=== PATIENT | female | born 1955 | race Caucasian/White ===

== ENCOUNTER 2018-11-29 13:23 | Emergency (ER) | payer OTHER ==
[~2018-11-29] VITALS: Ht 152.4 cm; Wt 63.5 kg
[2018-11-29] MEDS ORDERED: IV NORMAL SALINE 1000ML BAG 1,000 ML IV ONE (14:00)
[2018-11-29] MEDS ORDERED: LIDOCAINE 1%/EPI 1:100,000 20 ML VIAL. INJ ONE (15:00)
--- NOTE | 2018-11-29 15:22 | PHYS DOC ---
Past Medical History Past Medical History: No Pertinent History Alcohol Use: None Drug Use: None Adult General Chief Complaint Chief Complaint: LACERATION/AVULSION [facility] HPI Patient is a 63-year-old female who presents with laceration to her left wrist. Patient states that she was using electrostatic painter tool the strip pain off the wall when it accidentally cut into her left wrist. Patient reports pulsatile flow of blood. She states that she immediately returned again over the wound and came to the emergency room. Nursing staff reports that patient did have pulsatile flow when wound was exposed. Direct pressure immediately placed over wound. Patient reports pain is mild at this time.[] Review of Systems Review of Systems Constitutional: Denies fever or chills [] Respiratory: Denies cough or shortness of breath [] Cardiovascular: No additional information not addressed in HPI [] Integument: Positive laceration left wrist[] Neurologic: Denies headache, focal weakness or sensory changes [] Current Medications Current Medications Current Medications Medications (Trade) Dose Ordered Sig/Raffy Start Time Stop Time Status Last Admin Dose Admin Lidocaine/ Epinephrine (LIDOCAINE 1%-EPI 1:100,000 Multi-Dose) 5 ml 1X ONCE 11/29/18 15:00 11/29/18 15:01 UNV Sodium Chloride 1,000 ml @ 1,000 mls/hr 1X ONCE 11/29/18 14:00 11/29/18 14:59 UNV 11/29/18 14:28 1,000 MLS/HR Physical Exam Physical Exam Constitutional: Well developed, well nourished, no acute distress, non-toxic halima earance. [] Cardiovascular:Heart rate regular rhythm, no murmur [] Lungs & Thorax: Bilateral breath sounds clear to auscultation [] Skin: There is a 1 similar laceration to the volar aspect of the wrist overlying radial aspect. Laceration is linear. Patient is neurovascularly intact distal to wound. [] Current Patient Data Vital Signs Vital Signs Date Time Temp Pulse Resp B/P (MAP) Pulse Ox O2 Delivery O2 Flow Rate FiO2 11/29/18 13:33 97.9 18 73/55 (61) Room Air 97.9 EKG EKG [] Radiology/Procedures Radiology/Procedures [] Course & Med Decision Making Course & Med Decision Making Pertinent Labs and Imaging studies reviewed. (See chart for details) Patient moved to room upon arrival was evaluated by your medical staff after which a pressure dressing was applied to wound. Patient maintained and pressure dressing for approximately 30 minutes. Wound was reevaluated and no active bleeding noted. Laceration Repair by me: Anesthesia: 1% lidocaine with epinephrine locally Location: Volar aspect of left wrist Tendon/Joint/Nerves: No injury Foreign body: None detected after copious irrigation and exploration Technique: A total of 2 Simple Interrupted Sutures were placed utilizing 5-0 Ethilon suture material. Complexity: No subcutaneous sutures/mucosal repair/edge excision Post Closure Length: 1 cm Patient's bleeding was easily controlled in the department and there is no indication of anemia. No evidence of compartment syndrome, neurologic injury, vascular injury, open joint, tendon laceration, or foreign body. Patient is appropriate for outpatient follow up. 48 hour wound check. Scar minimization instructions given. Given location of laceration and initial pulsatile flow, patient was placed in a wrist splint for immobilization of wrist to decrease likelihood of rebleeding. Patient reevaluated post splint placement and is neurovascularly intact. Dragon Disclaimer Dragon Disclaimer This electronic medical record was generated, in whole or in part, using a voice recognition dictation system. Departure Departure Impression: Primary Impression: Laceration of left wrist Disposition: HOME, SELF-CARE Condition: STABLE Referrals: NARINDER CALDERON MD (PCP) Patient Instructions: Laceration Care, Adult Additional Instructions: Return in 7-10 days for suture removal. Problem Qualifiers Primary Impression: Laceration of left wrist Encounter type: initial encounter Qualified Codes: S61.512A - Laceration without foreign body of left wrist, initial encounter KRISHNA LIZAMA Jr. DO Nov 29, 2018 15:22
[2018-11-29 17:10] VITALS: BP 130/80
== END 2018-11-29 17:14 | disposition home or self-care (01) ==
LOC: ER 13:23
DX: S61.512A Laceration without foreign body of left wrist, initial encounter (principal); W27.8XXA Contact with other nonpowered hand tool, initial encounter; Y93.89 Activity, other specified; Y92.89 Other specified places as the place of occurrence of the external cause; Y99.8 Other external cause status
CPT/HCPCS: 12001; 99283; J3490; J7030